=== PATIENT | female | born 1980 | race Caucasian/White ===

== ENCOUNTER → 2024-05-05 13:29 | Outpatient (REF) | payer OTHER, SELFPAY | LOC: WDC 13:29 | PROVIDERS: ATTENDING PHYSICIAN Family Medicine | DX: Z12.31 Encounter for screening mammogram for malignant neoplasm of breast (principal) | CPT/HCPCS: 77063; 77067 ==

== ENCOUNTER 2024-08-31 18:08 | Emergency (ER) | payer OTHER, SELFPAY ==
[2024-08-31 18:09] VITALS: BP 122/79
[2024-08-31] MEDS: MOTRIN 400 MG PO (19:24)
--- NOTE | 2024-08-31 20:55 | ED.GENMED ---
History of Present Illness
General
Chief Complaint: Musculo-Skeletal Complaint
Source: patient
Exam Limitations: none
Time Seen by Provider: 08/31/24 18:18
Nursing documentation reviewed up to this point in time: agreed with
History of Present Illness
History of Present Illness:
Patient is a 44 year old female presenting to the emergency department with pain in her right foot. She initially noticed symptoms after taking a long walk yesterday although pain has worsened significantly and she is having difficulty
weightbearing. Patient describes focal pain on the sole of her foot at the base of the MTP joint between her second and third toes. She also describes a tingling sensation moving up her right foot. She has no pain or swelling in her right calf and
denies any knee pain.
She has no known inciting injury. She did trip on the stairs two days ago although does not believe that she injured her foot and did not have immediate pain.
She is already scheduled to see a foot/ankle specialist at [facility] on Thursday
Review of Systems
Review of Systems
Allergies reviewed?: Yes
All Other Systems: ROS reviewed and negative except as documented in HPI and ROS
Phy Exam
Physical Exam
Physical Exam:
Vitals: Patient's vital signs are stable. Afebrile
General: Patient is well appearing, no acute distress
Skin: Warm and dry, no rashes or lesions
Head: Normocephalic, atraumatic
Throat: Protecting airway
Neck: Normal ROM, no cervical spine tenderness
Cardiac: Regular rate
Pulm: No apparent respiratory distress
Abdomen: Nondistended
Extremities: Point tenderness near MTP joint between second and third digits at ball of right foot. Minimal diffuse swelling of right foot without any erythema, warmth. No tenderness of right midfoot, calcaneus, or base of right 5th metatarsal. Some
limited plantarflexion due to pain. Capillary refill wnl. No bony tenderness of right ankle or right lower leg. Palpable DP / PT pulse of RLE. Negative [place] sign bilaterally without and swelling or tenderness of right calf.
Neuro: Grossly intact
Psychiatric: Normal affect.
Course
Orders/Labs/Results
Orders:
Orders
08/31/24 18:16
Foot, Right 3 View [CR Foot - Right Min 3 Views] Urgent
Comment:
Reason For Exam: injury
08/31/24 19:02
Ibuprofen [Motrin] 400 mg PO NOW STA
08/31/24 19:04
Crutches-Treatment ONCE
08/31/24 19:05
Cast Shoe Right-Treatment ONCE
Vital Signs
Initial and Last Documented VS:
Initial Vital Signs
Temp Pulse Resp BP Pulse Ox
98 F 83 16 122/79 98
08/31/24 18:09 08/31/24 18:09 08/31/24 18:09 08/31/24 18:09 08/31/24 18:09
Last Documented Vital Signs
Temp Pulse Resp BP Pulse Ox
98 F 83 16 122/79 98
08/31/24 18:09 08/31/24 18:09 08/31/24 18:09 08/31/24 18:09 08/31/24 18:09
MDM/Problems Addressed
Differential Diagnosis Includes:
Not limited to: foot fracture, foot sprain, osteoarthritis, mortons neuroma, etc
MDM/Problems Addressed:
44-year-old female presenting with atraumatic right foot pain. Pt has pain at ball of foot between digits 2�3 with some tingling sensation in surrounding area. No fevers, chills. No lower extremity edema or pain. No recent travel or surgeries.
Vitals and physical exam as above. Patient has diffuse edema and point tenderness at MTP joint between second and third digits - most notable on sole. There is no overlying erythema or warmth. RLE neurovascularly intact. An x-ray of the right foot
was obtained which shows no evidence of acute fracture or dislocation.
While pt did have recent slip and fall two days ago I feel this was likely coincidental given negative imaging and no hx of immediate discomfort. Do not suspect underlying infectious process. No evidence of DVT. Low suspicon for emergenct process.
Did consider Gonsalves's Neuroma vs metatalgia vs osteoarthirtis. Will provide crutches for ambulating. Feel pt stable for discharge home w/ orho/podiatry appt on Thursday as scheduled. Advised ice, elevation, and Tylenol for pain. Return precautions
discussed.
Chronic conditions affecting care:
N/A
Acute Exacerbation and/or Progression of Chronic Illness:
N/A
*Radiology
Radiology exam reviewed: preliminary read by ED provider (R foot xray reviewed by be - no acute fracture) and radiology read reviewed
*Pulse Oximetry
Patient hypoxic: no
*EKG
Interpreted by ED Provider?: NA
*Manufacturing Baker Interpretation
Rate: Manufacturing Baker- N/A
*Critical Care Note
Total Time (30-74mins, 75-104mins- exclusive of procedures): Not Applicable
ED Attending Note
-
Portions of this chart may have been created with voice recognition software.� Occasional wrong word or��sound alike� substitutions may have occurred due to the inherent limitations of voice recognition software.
Discharge Plan
Departure
Patient Disposition: Home (Routine Discharge)
Date of Disposition: 08/31/24
Time of Disposition: 19:18
Patient with high blood pressure during this ER visit?: No
Covid-19: Not Applicable
Discharge Problem:
Foot pain, right
Instructions: Gonsalves's Neuroma (DC)
Prescriptions:
No Action
Vitamins
1 tab PO DAILY
cholecalciferol (vitamin D3) 2,000 UNIT tablet
2,000 unit PO DAILY
ibuprofen 600 MG tablet
600 mg PO Q4HPRN PRN (Reason: moderate pain/cramps) 0RF
Referrals:
Alma Walls MD [Family Provider] -
Activity Restrictions/Additional Instructions:
Return to the emergency department with any significant swelling, redness of right foot/calf, worsening numbness/tingling of right foot, intractable pain, or any other concerns
- As discussed�your x-ray in the emergency department showed no evidence of acute fracture of the right foot.
- This may be a Gonsalves's neuroma. You were given crutches in the emergency department to assist with ambulation. You should wear wide footwear with a lot of padding.
- Follow-up with orthopedics/podiatry as scheduled for Thursday.
Monitor your symptoms closely and return to the emergency department with any acute worsening/new symptoms or any other concerns
Interventions
Interventions:
*Risk Screen - Suicide Last Done: 08/31/24 18:09
*Neglect/Abuse Screening Last Done: 08/31/24 18:09
*Nursing Disposition Last Done: 08/31/24 19:35
Discharge Date and Time
Discharge Date/Time: 08/31/24 19:35
Print Language: CHINESE
== END 2024-08-31 19:35 | disposition home or self-care (01) ==
LOC: EMR 18:08
PROVIDERS: EMERGENCY PHYSICIAN Emergency Medicine; FAMILY PHYSICIAN Family Medicine
DX: M79.671 Pain in right foot (principal)
CPT/HCPCS: 99283; 73630